=== PATIENT | female | born 1930 | race Caucasian/White ===

== ENCOUNTER 2018-02-20 04:53 | Outpatient (CLI) | payer SELFPAY ==
[~2018-02-20 04:53] MED LIST: ACET-2319 PO; ASPI-1265 PO; BENA20TA2 PO; METF500T7 PO; NATE60TA PO; NATE60TA11 PO; NOR5T PO; OMEG1CAP21 PO; SIMV80TA2 PO; VIT1CAPS12 PO
== END 2018-02-20 23:59 | disposition home or self-care (01) ==
LOC: HW VAS 04:53
DX: Z13.6 Encounter for screening for cardiovascular disorders (principal)

== ENCOUNTER 2018-06-12 15:21 | Inpatient (IN) | payer MEDICARE, BC ==
[~2018-06-12] VITALS: Ht 167.6 cm; Wt 110.0 kg
[~2018-06-12 15:21] MED LIST changes: -BENA20TA2 PO; +BENA20TA82 PO
[2018-06-12] MEDS ORDERED: aspirin 81mg tab.chew PO ONE (15:30)
[2018-06-12 15:48] LABS: BASOPHILS % (AUTO) 0.3 % (0-1); EOSINOPHILS # (AUTO) 0.2 X10'3 (0-0.9); HEMATOCRIT 39.6 % (35.0-45.0); HEMOGLOBIN 12.9 g/dl (12.0-16.0); LYMPHOCYTES # (AUTO) 1.7 X10'3 (1.1-4.8); LYMPHOCYTES % (AUTO) 16.4 % (21-51); MEAN CORPUSCULAR HGB CONC 32.6 % (33.0-36.5); MEAN CORPUSCULAR VOLUME 92.2 FL (78-98); MEAN PLATELET VOLUME 8.2 FL (7.4-10.4); MONOCYTES # (AUTO) 0.4 X10'3 (0-0.9); MONOCYTES % (AUTO) 3.6 % (2-12); NEUTROPHILS # (AUTO) 8.2 X10'3 (1.8-7.7); NEUTROPHILS % (AUTO) 77.7 % (42-75); PLATELET COUNT 194 X10'3 (140-440); RED CELL DISTRIBUTION WIDTH 12.9 % (11.5-14.5); WHITE BLOOD COUNT 10.6 X10'3 (4.5-11.0)
[2018-06-12 15:57] LABS: INR 1.1 INR; PARTIAL THROMBOPLASTIN TIME 33 SECONDS (22-32); PROTHROMBIN TIME 11.1 SECONDS (9.0-12.0)
[2018-06-12 16:02] LABS: ALANINE AMINOTRANSFERASE 28 U/L (12-78); ALBUMIN 3.2 G/DL (3.4-5.0); ALBUMIN/GLOBULIN RATIO 0.8 (1.1-1.5); ALKALINE PHOSPHATASE 73 IU/L (46-116); ANION GAP 9 (8-16); ASPARTATE AMINO TRANSFERASE 25 U/L (10-37); BILIRUBIN,TOTAL 0.3 MG/DL (0.1-1.0); BLOOD UREA NITROGEN 19 MG/DL (7-18); BUN/CREATININE RATIO 16.8 (6.6-38.0); CALCIUM 9.5 MG/DL (8.5-10.1); CHLORIDE 101 MMOL/L (99-107); CREATININE 1.13 MG/DL (0.40-0.90); GLUCOSE 173 MG/DL (70-104); POTASSIUM 4.6 MMOL/L (3.5-5.1); SODIUM 137 MMOL/L (135-145); TOTAL CARBON DIOXIDE 26.6 MMOL/L (24-32); eGFR 46 ML/MIN
[2018-06-12 16:10] LABS: MAGNESIUM 1.9 MG/DL (1.5-2.4)
[2018-06-12] MEDS ORDERED: fentaNYL/PF 50MCG/1 ML 2ML syringe IV ONE (16:20)
[2018-06-12] MEDS ORDERED: potassium Cl 20 mEq SR tablet PO PRN ×2 (16:50)
[2018-06-12] MEDS ORDERED: nitroGLYCERIN 0.4mg SUBLingual tab SL PRN ×2 (16:50)
[2018-06-12] MEDS ORDERED: MESSAGE TO PHARMACY PO ONE (16:50)
[2018-06-12] MEDS ORDERED: CAFFEINE CITRATE 60 MG/3 ML injection vial IV PRN (16:50)
[2018-06-12] MEDS ORDERED: ondansetron/PF 4mg/2ml inj IV PRN (16:50)
[2018-06-12] MEDS ORDERED: glucagon, human recombinant 1mg kit SUBCUT PRN (16:50)
[2018-06-12] MEDS ORDERED: mag hydrox/Alum hydrox/simeth 30ml oral suspension PO PRN (16:50)
[2018-06-12] MEDS ORDERED: HYDROcodone/acetaminophen 5mg/325mg tablet PO PRN (16:50)
[2018-06-12] MEDS ORDERED: morphine 2 MG/ML inj. syringe IV PRN ×2 (16:50)
[2018-06-12] MEDS ORDERED: acetaminophen 325mg tablet PO PRN (16:50)
[2018-06-12] MEDS ORDERED: regadenoson 0.4mg/5ml syringe IV PRN (16:50)
[2018-06-12] MEDS ORDERED: dextrose ORAL solution 15 GM/59 ML bottle PO PRN ×2 (16:50)
[2018-06-12] MEDS ORDERED: magnesium 4gm in 100ml NS 100 ML IV PRN (16:50)
[2018-06-12] MEDS: metoprolol tartrate 12.5mg (1/2 tablet) PO SCH ×2 (16:50→20:00)
[2018-06-12] MEDS ORDERED: bisacodyl 10mg suppository rectal RC PRN (16:50)
[2018-06-12] MEDS ORDERED: HYDROcodone/acetaminophen 10/325mg tab PO PRN (16:50)
[2018-06-12] MEDS ORDERED: magnesium 1gm/100ml D5W IVPB 100 ML IV PRN (16:50)
[2018-06-12] MEDS ORDERED: magnesium hydroxide 30ml (MOM) UD suspension PO PRN (16:50)
[2018-06-12] MEDS ORDERED: dextrose 50%-water 50ml dispensing syringe IV PRN ×2 (16:50)
[2018-06-12] MEDS ORDERED: potassium Cl 40MEQ/NS 500ml 500 ML IV PRN ×2 (16:50)
[2018-06-12] MEDS ORDERED: magnesium Cl slow-release 64mg tablet PO PRN (16:50)
[2018-06-12] MEDS ORDERED: metoprolol tartrate 1mg/ml inj IV PRN (16:50)
[2018-06-12 17:00] VITALS: BP 132/52
[2018-06-12 17:15] LABS: H PYLORI ANTIBODY NEGATIVE (Neg)
[2018-06-12 20:00] VITALS: BP 94/44
[2018-06-12] MEDS: docusate sod 100mg capsule PO SCH (20:00)
[2018-06-12] MEDS ORDERED: heparin, porcine 5000 units/ml vial SQ SCH (20:00)
[2018-06-12] MEDS: pantoprazole 40 MG vial IV SCH (20:13)
[2018-06-12] MEDS ORDERED: SOLI5TAB2 PO (22:22)
[2018-06-12] MEDS ORDERED: DABI150C PO (22:22)
[2018-06-12] MEDS ORDERED: LEVO50TA8 PO (22:22)
[2018-06-12] MEDS ORDERED: BENA20TA2 PO (22:22)
[2018-06-12] MEDS ORDERED: NITR0.4T51 SL (22:22)
[2018-06-12] MEDS ORDERED: ROSU5TAB PO (22:22)
[2018-06-12] MEDS ORDERED: METF-438 PO (22:22)
[2018-06-12] MEDS ORDERED: CARV-50 PO (22:22)
[2018-06-12] MEDS ORDERED: carVEDilol 12.5mg tablet PO ONE (22:55)
[2018-06-13] VITALS: BP 108/54
[2018-06-13 05:04] LABS: ALANINE AMINOTRANSFERASE 28 U/L (12-78); ALBUMIN 2.9 G/DL (3.4-5.0); ALBUMIN/GLOBULIN RATIO 0.9 (1.1-1.5); ALKALINE PHOSPHATASE 62 IU/L (46-116); ANION GAP 10 (8-16); ASPARTATE AMINO TRANSFERASE 65 U/L (10-37); BILIRUBIN,TOTAL 0.3 MG/DL (0.1-1.0); BLOOD UREA NITROGEN 16 MG/DL (7-18); BUN/CREATININE RATIO 16.3 (6.6-38.0); CALCIUM 8.6 MG/DL (8.5-10.1); CHLORIDE 101 MMOL/L (99-107); CREATININE 0.98 MG/DL (0.40-0.90); GLUCOSE 96 MG/DL (70-104); POTASSIUM 4.2 MMOL/L (3.5-5.1); SODIUM 138 MMOL/L (135-145); TOTAL CARBON DIOXIDE 27.4 MMOL/L (24-32); TOTAL PROTEIN 6.3 G/DL (6.4-8.2); eGFR 54 ML/MIN
[2018-06-13 05:07] LABS: CHOL/HDL RATIO 2.9 (0.00-4.99); CHOLESTEROL 100 MG/DL (0-200); HDL CHOLESTEROL 34 MG/DL (35-60); LDL CHOLESTEROL 49 MG/DL (50-100); MAGNESIUM 1.8 MG/DL (1.5-2.4); TRIGLYCERIDES 176 MG/DL (20-135)
[2018-06-13 07:05] VITALS: BP 116/49
[2018-06-13] MEDS: carVEDilol 12.5mg tablet PO SCH ×2 (07:11→19:45)
[2018-06-13] MEDS: pantoprazole 40 MG vial IV SCH (07:11)
[2018-06-13] MEDS: docusate sod 100mg capsule PO SCH ×2 (07:12→19:46)
[2018-06-13] MEDS: metoprolol tartrate 12.5mg (1/2 tablet) PO SCH (07:13)
[2018-06-13] MEDS ORDERED: aspirin 81mg tablet.DR PO SCH (08:00)
[2018-06-13] MEDS: K and/or MAG REPLACEMENT MC SCH (08:00)
[2018-06-13 08:14] LABS: BASOPHILS % (AUTO) 0.4 % (0-1); EOSINOPHILS # (AUTO) 0.2 X10'3 (0-0.9); EOSINOPHILS % (AUTO) 1.8 % (0-6); LYMPHOCYTES # (AUTO) 2.2 X10'3 (1.1-4.8); LYMPHOCYTES % (AUTO) 25.8 % (21-51); MEAN CORPUSCULAR HEMOGLOBIN 29.9 PG (27.0-31.0); MEAN CORPUSCULAR HGB CONC 32.5 % (33.0-36.5); MEAN CORPUSCULAR VOLUME 91.9 FL (78-98); MEAN PLATELET VOLUME 9.3 FL (7.4-10.4); MONOCYTES # (AUTO) 0.6 X10'3 (0-0.9); MONOCYTES % (AUTO) 7.3 % (2-12); NEUTROPHILS # (AUTO) 5.5 X10'3 (1.8-7.7); NEUTROPHILS % (AUTO) 64.7 % (42-75); PLATELET COUNT 160 X10'3 (140-440); RED BLOOD COUNT 4.03 X10'6 (4.20-5.60); RED CELL DISTRIBUTION WIDTH 12.7 % (11.5-14.5); WHITE BLOOD COUNT 8.5 X10'3 (4.5-11.0)
[2018-06-13] MEDS ORDERED: heparin 10,000 units/1 ML INJ IV ONE (08:45)
[2018-06-13] MEDS ORDERED: heparin 10,000 units/1 ML INJ IV PRN (08:45)
[2018-06-13] MEDS ORDERED: ESOM5SUS PO (08:57)
[2018-06-13] MEDS ORDERED: NATE120T PO (08:58)
[2018-06-13] MEDS ORDERED: atorvastatin 20mg tablet PO SCH (09:40)
[2018-06-13 09:44] LABS: PARTIAL THROMBOPLASTIN TIME 32 SECONDS (22-32); PROTHROMBIN TIME 10.8 SECONDS (9.0-12.0)
[2018-06-13] MEDS: atorvastatin 20mg tablet PO SCH (10:30)
[2018-06-13 11:11] VITALS: BP 116/83
[2018-06-13] MEDS: tirofiban 5mg in NS 100mL 100 ML IV SCH ×3 (11:39→20:46)
[2018-06-13 15:00] VITALS: BP 108/48
[2018-06-13 19:00] VITALS: BP 131/57
[2018-06-13 23:00] VITALS: BP 118/48
[2018-06-14] VITALS (13 sets, daily range): BP systolic 100–141; BP diastolic 41–76
[2018-06-14 01:25] LABS: ALANINE AMINOTRANSFERASE 31 U/L (12-78); ALBUMIN 2.9 G/DL (3.4-5.0); ALBUMIN/GLOBULIN RATIO 0.8 (1.1-1.5); ALKALINE PHOSPHATASE 71 IU/L (46-116); ANION GAP 8 (8-16); ASPARTATE AMINO TRANSFERASE 60 U/L (10-37); BILIRUBIN,TOTAL 0.3 MG/DL (0.1-1.0); BLOOD UREA NITROGEN 14 MG/DL (7-18); BUN/CREATININE RATIO 13.2 (6.6-38.0); CALCIUM 8.4 MG/DL (8.5-10.1); CHLORIDE 102 MMOL/L (99-107); CREATININE 1.06 MG/DL (0.40-0.90); GLUCOSE 119 MG/DL (70-104); MAGNESIUM 1.9 MG/DL (1.5-2.4); SODIUM 140 MMOL/L (135-145); TOTAL CARBON DIOXIDE 29.8 MMOL/L (24-32); TOTAL PROTEIN 6.6 G/DL (6.4-8.2); eGFR 49 ML/MIN
[2018-06-14] MEDS: tirofiban 5mg in NS 100mL 100 ML IV SCH ×2 (01:31→05:09)
[2018-06-14 05:39] LABS: BASOPHILS # (AUTO) 0.1 X10'3 (0-0.2); BASOPHILS % (AUTO) 0.9 % (0-1); EOSINOPHILS # (AUTO) 0.2 X10'3 (0-0.9); EOSINOPHILS % (AUTO) 3.3 % (0-6); HEMATOCRIT 37.8 % (35.0-45.0); HEMOGLOBIN 12.4 g/dl (12.0-16.0); LYMPHOCYTES # (AUTO) 2.6 X10'3 (1.1-4.8); LYMPHOCYTES % (AUTO) 39.9 % (21-51); MEAN CORPUSCULAR HEMOGLOBIN 30.3 PG (27.0-31.0); MEAN CORPUSCULAR HGB CONC 32.8 % (33.0-36.5); MEAN CORPUSCULAR VOLUME 92.2 FL (78-98); MEAN PLATELET VOLUME 9.3 FL (7.4-10.4); MONOCYTES # (AUTO) 0.5 X10'3 (0-0.9); MONOCYTES % (AUTO) 8.3 % (2-12); NEUTROPHILS # (AUTO) 3.1 X10'3 (1.8-7.7); NEUTROPHILS % (AUTO) 47.6 % (42-75); RED CELL DISTRIBUTION WIDTH 13.1 % (11.5-14.5); WHITE BLOOD COUNT 6.5 X10'3 (4.5-11.0)
[2018-06-14] MEDS ORDERED: lidocaine 1%/epinephrine 1:100,000 injection 50ml vial ONE (06:16)
[2018-06-14] MEDS ORDERED: iohexol 350MG/ML 100ml bottle IV ONE ×2 (06:16→06:51)
[2018-06-14] MEDS ORDERED: fentaNYL/PF 50MCG/1 ML 2ML syringe ONE (06:29)
[2018-06-14] MEDS ORDERED: midazolam 2 mg/2 ml injection ONE (06:29)
[2018-06-14] MEDS ORDERED: heparin 1,000unit/ml 10ml vial 10 ML ONE (06:51)
[2018-06-14] MEDS ORDERED: ticagrelor 90mg tablet ONE (07:11)
[2018-06-14 07:23] LABS: PLATELET ESTIMATE NORMAL
[2018-06-14 07:26] LABS: PLATELET COUNT 189 X10'3 (140-440)
[2018-06-14] MEDS: docusate sod 100mg capsule PO SCH ×2 (08:00→20:22)
[2018-06-14] MEDS: K and/or MAG REPLACEMENT MC SCH (08:00)
[2018-06-14] MEDS: carVEDilol 12.5mg tablet PO SCH ×2 (08:00→20:22)
[2018-06-14] MEDS ORDERED: HYDROcodone/acetaminophen 5mg/325mg tablet PO PRN (09:40)
[2018-06-14] MEDS ORDERED: OXAZEpam 15mg capsule PO PRN (09:40)
[2018-06-14] MEDS ORDERED: HYDROcodone/acetaminophen 10/325mg tab PO PRN (09:40)
[2018-06-14] MEDS ORDERED: proCHLORperazine 10 MG/2 ml inj IV PRN (09:40)
[2018-06-14] MEDS ORDERED: ondansetron/PF 4mg/2ml inj IV PRN ×2 (09:40→11:30)
[2018-06-14] MEDS: normal saline 1000ml 1,000 ML IV SCH ×2 (09:56→20:27)
[2018-06-14] MEDS: atorvastatin 20mg tablet PO SCH (10:00)
[2018-06-14] MEDS: aspirin 81mg tab.chew PO SCH (10:17)
[2018-06-14] MEDS: pantoprazole 40mg Tablet.DR PO SCH (10:17)
[2018-06-14] MEDS: insulin Lispro (HumaLOG) vial - multi-dose SQ SCH ×2 (14:43→17:59)
[2018-06-14] MEDS: ticagrelor 90mg tablet PO SCH (20:24)
[2018-06-15 03:00] VITALS: BP 126/47
[2018-06-15 06:11] LABS: ALANINE AMINOTRANSFERASE 25 U/L (12-78); ALBUMIN 2.7 G/DL (3.4-5.0); ALBUMIN/GLOBULIN RATIO 0.9 (1.1-1.5); ALKALINE PHOSPHATASE 65 IU/L (46-116); ANION GAP 11 (8-16); ASPARTATE AMINO TRANSFERASE 38 U/L (10-37); BILIRUBIN,TOTAL 0.5 MG/DL (0.1-1.0); BLOOD UREA NITROGEN 16 MG/DL (7-18); BUN/CREATININE RATIO 16.2 (6.6-38.0); CALCIUM 8.4 MG/DL (8.5-10.1); CHLORIDE 101 MMOL/L (99-107); CREATININE 0.99 MG/DL (0.40-0.90); GLUCOSE 134 MG/DL (70-104); POTASSIUM 4.2 MMOL/L (3.5-5.1); SODIUM 138 MMOL/L (135-145); TOTAL CARBON DIOXIDE 25.9 MMOL/L (24-32); TOTAL PROTEIN 5.8 G/DL (6.4-8.2); eGFR 53 ML/MIN
[2018-06-15 07:00] VITALS: BP 119/92
[2018-06-15 08:00] VITALS: BP_SYST 121; BP_SYST 122; BP_SYST 126; BP_DIAS 46; BP_DIAS 51; BP_DIAS 59
[2018-06-15] MEDS: K and/or MAG REPLACEMENT MC SCH (08:00)
[2018-06-15] MEDS: atorvastatin 20mg tablet PO SCH (08:00)
[2018-06-15] MEDS: pantoprazole 40mg Tablet.DR PO SCH (08:01)
[2018-06-15] MEDS: aspirin 81mg tab.chew PO SCH (08:02)
[2018-06-15] MEDS: docusate sod 100mg capsule PO SCH (08:02)
[2018-06-15] MEDS: ticagrelor 90mg tablet PO SCH (08:02)
[2018-06-15] MEDS: carVEDilol 12.5mg tablet PO SCH (08:03)
[2018-06-15 08:11] LABS: WHITE BLOOD COUNT 7.8 X10'3 (4.5-11.0)
[2018-06-15 08:12] LABS: BASOPHILS % (AUTO) 0.3 % (0-1); EOSINOPHILS # (AUTO) 0.1 X10'3 (0-0.9); EOSINOPHILS % (AUTO) 1.5 % (0-6); HEMATOCRIT 30.7 % (35.0-45.0); HEMOGLOBIN 10.3 g/dl (12.0-16.0); LYMPHOCYTES # (AUTO) 1.9 X10'3 (1.1-4.8); LYMPHOCYTES % (AUTO) 24.6 % (21-51); MEAN CORPUSCULAR HEMOGLOBIN 30.8 PG (27.0-31.0); MEAN CORPUSCULAR HGB CONC 33.7 % (33.0-36.5); MEAN CORPUSCULAR VOLUME 91.6 FL (78-98); MEAN PLATELET VOLUME 9.3 FL (7.4-10.4); MONOCYTES # (AUTO) 0.7 X10'3 (0-0.9); MONOCYTES % (AUTO) 8.6 % (2-12); NEUTROPHILS # (AUTO) 5.1 X10'3 (1.8-7.7); PLATELET COUNT 150 X10'3 (140-440); RED BLOOD COUNT 3.35 X10'6 (4.20-5.60); RED CELL DISTRIBUTION WIDTH 12.7 % (11.5-14.5)
[2018-06-15 11:00] VITALS: BP 122/46
[2018-06-15] MEDS ORDERED: TICA90TA PO (11:02)
[2018-06-15] MEDS ORDERED: ASPI-1265 PO (11:02)
== END 2018-06-15 12:57 | disposition home or self-care (01) | DRG 246 ==
LOC: ER 15:21 → OBSVTOIN 16:47 → ED HOLD 16:47 → SUR 3N 17:40 → PCU 3S 06-13 12:21
PROVIDERS: ADMIT Internal Medicine; ATTEND Family Medicine
PROC: 4A023N7 Measurement of Cardiac Sampling and Pressure, Left Heart, Percutaneous Approach (ICD-10-PCS; principal; 2018-06-14)
PROC: 027034Z Dilation of Coronary Artery, One Artery with Drug-eluting Intraluminal Device, Percutaneous Approach (ICD-10-PCS; 2018-06-14)
PROC: B2111ZZ Fluoroscopy of Multiple Coronary Arteries using Low Osmolar Contrast (ICD-10-PCS; 2018-06-14)
PROC: B2151ZZ Fluoroscopy of Left Heart using Low Osmolar Contrast (ICD-10-PCS; 2018-06-14)
DX: I21.4 Non-ST elevation (NSTEMI) myocardial infarction (principal); I50.33 Acute on chronic diastolic (congestive) heart failure; I42.9 Cardiomyopathy, unspecified; I48.91 Unspecified atrial fibrillation; E11.9 Type 2 diabetes mellitus without complications; E78.5 Hyperlipidemia, unspecified; H35.30 Unspecified macular degeneration; I11.0 Hypertensive heart disease with heart failure; K21.9 Gastro-esophageal reflux disease without esophagitis; F41.9 Anxiety disorder, unspecified; K22.4 Dyskinesia of esophagus; I95.1 Orthostatic hypotension; M19.90 Unspecified osteoarthritis, unspecified site; M35.3 Polymyalgia rheumatica; Z95.0 Presence of cardiac pacemaker; Z90.49 Acquired absence of other specified parts of digestive tract; Z88.8 Allergy status to other drugs, medicaments and biological substances; Z79.899 Other long term (current) drug therapy; Z79.82 Long term (current) use of aspirin; Z79.84 Long term (current) use of oral hypoglycemic drugs; Z87.11 Personal history of peptic ulcer disease; Z87.891 Personal history of nicotine dependence
CPT/HCPCS: 93306; 93458; 99285; C9600; 36415; 71045; 80053; 80061; 82948; 83036; 83735; 83880; 84484; 85025; 85610; 85730; 86677; 87070; 93005; 99152; 99153; A4620; A6257; C1725; C1760; C1769; C1874; C9113; G0378; J0780; J1644; J2250; J2405; J3010; J3246; J3490; J7030; Q9967